=== PATIENT | female | born 1955 | race Caucasian/White ===

== ENCOUNTER → 2018-07-25 | Day surgery (SDC) | payer BC ==
[~2018-07-25] MED LIST: FENTANYL CITRATE/PF 100MCG/2 ML INJ ONE; FERROUS SULFAT325 MG PO; GLUCAGON FOR INJ 1 MG VIAL ONE; HYDROXYCHLOROQ200 MG PO; MELOXICAM7.5 MG PO; MIDAZOLAM HCL 2 MG/2 ML VIAL ONE; PROPOFOL IV EMULSION 10 MG/ML 50 ML VIAL ONE; SULFASALAZINE500 MG PO; XELJANZ XR PO
[2018-07-25 17:55] VITALS: BP 139/80
--- NOTE | 2018-07-26 00:19 | Operative Report ---
DATE OF PROCEDURE: 07/25/2018 SURGEON: Main Simmons MD PROCEDURE: Colonoscopy with biopsies. INDICATIONS FOR COLONOSCOPY: Colorectal cancer screening. Mother with colon cancer. MEDICATIONS: The patient was done under MAC, please see anesthesiologist's note. PROCEDURE IN DETAIL: With the patient in the left lateral decubitus position, a flexible fiberoptic Olympus colonoscope was inserted into the rectum with ease and advanced all the way to the cecum. It was then withdrawn slowly. Mucosa overlying the cecum, ascending colon, transverse colon, and descending colon appeared to be within normal limits. A single diverticulum was noted in the sigmoid colon. Several scattered ?aphthous ulcers were noted in the sigmoid as well as the rectum, and biopsies were obtained. The scope was then retroflexed into the distal rectum and small internal hemorrhoids were noted, none of which was actively bleeding. The scope was then straightened out, it was subsequently withdrawn. The patient tolerated the procedure well. IMPRESSION: 1. Single sigmoid colon diverticulum. 2. Proctosigmoiditis, mild, biopsies obtained. 3. Internal hemorrhoids, none actively bleeding. PLAN: Follow up histology. Initiate high-fiber, low-fat diet. Initiate high-fiber supplement. The patient might benefit from a followup colonoscopy in 5-10 years. Main Simmons MD [facility] [place] [place][id number] cc: Alejandro Chappell MD
== END | disposition home or self-care (01) ==
LOC: ENDO 11:46
PROVIDERS: ATTEND Internal Medicine Gastroenterology
DX: Z12.11 Encounter for screening for malignant neoplasm of colon (principal); K57.30 Diverticulosis of large intestine without perforation or abscess without bleeding; K63.89 Other specified diseases of intestine; K64.8 Other hemorrhoids; M06.9 Rheumatoid arthritis, unspecified; Z80.0 Family history of malignant neoplasm of digestive organs
CPT/HCPCS: 45380; J1610; J2250; J2704